=== PATIENT | female | born 1975 | race Caucasian/White ===

== ENCOUNTER 2017-06-20 09:08 | Emergency (ER) | payer MEDICAID | END 2017-06-20 10:34 | disposition home or self-care (01) | LOC: E/R 09:08 | DX: J45.901 Unspecified asthma with (acute) exacerbation (principal) | CPT/HCPCS: 99283; Z7502 ==

== ENCOUNTER 2017-07-15 06:23 | Emergency (ER) | payer MEDICAID ==
[2017-07-15] MEDS: predniSONE 20 MG TAB PO (07:05)
[2017-07-15] MEDS: IPRATROPIUM (NEB) 0.5 MG/2.5 ML AMP HHN (07:20)
[2017-07-15] MEDS: ALBUTEROL 0.083% (NEB) 2.5 MG/3 ML AMP HHN (07:20)
== END 2017-07-15 08:29 | disposition home or self-care (01) ==
LOC: FTE 06:23
DX: J06.9 Acute upper respiratory infection, unspecified (principal); J45.909 Unspecified asthma, uncomplicated
CPT/HCPCS: 71045; 94664; 99284-25

== ENCOUNTER 2017-08-13 02:47 | Emergency (ER) | payer MEDICAID ==
[2017-08-13] MEDS: DEXAMETHASONE 10 MG/ML 1 ML INJ IM (07:48)
[2017-08-13] MEDS: IPRATROPIUM (NEB) 0.5 MG/2.5 ML AMP HHN (07:56)
[2017-08-13] MEDS: ALBUTEROL 0.083% (NEB) 2.5 MG/3 ML AMP HHN (07:56)
== END 2017-08-13 09:07 | disposition home or self-care (01) ==
LOC: FTE 02:47
DX: J45.901 Unspecified asthma with (acute) exacerbation (principal)
CPT/HCPCS: 94664; 96372; 99284-25

== ENCOUNTER 2017-09-11 04:33 | Emergency (ER) | payer SELFPAY, MEDICAID | END 2017-09-11 07:25 | disposition left against medical advice (07) | LOC: FTE 04:33 | DX: Z53.21 Procedure and treatment not carried out due to patient leaving prior to being seen by health care provider (principal) ==

== ENCOUNTER 2017-09-11 21:39 | Emergency (ER) | payer MEDICAID, OTHER ==
[2017-09-12] MEDS: ALBUTEROL 0.083% (NEB) 2.5 MG/3 ML AMP NEB (01:47)
[2017-09-12] MEDS: IPRATROPIUM (NEB) 0.5 MG/2.5 ML AMP NEB (01:47)
== END 2017-09-12 04:29 | disposition home or self-care (01) ==
LOC: FTE 21:39
DX: J45.901 Unspecified asthma with (acute) exacerbation (principal); J20.9 Acute bronchitis, unspecified
CPT/HCPCS: 71045; 94664; 99284-25

== ENCOUNTER 2018-07-01 06:31 | Emergency (ER) | payer MEDICAID ==
[2018-07-01] MEDS: DEXAMETHASONE 10 MG/ML 1 ML INJ IM (07:03)
[2018-07-01] MEDS: ALBUTEROL 0.083% (NEB) 2.5 MG/3 ML AMP HHN (07:14)
[2018-07-01] MEDS: IPRATROPIUM (NEB) 0.5 MG/2.5 ML AMP HHN (07:15)
== END 2018-07-01 08:05 | disposition home or self-care (01) ==
LOC: FTE 06:31
DX: J45.901 Unspecified asthma with (acute) exacerbation (principal)
CPT/HCPCS: 94644; 96372; 99284-25

== ENCOUNTER 2018-08-22 04:44 | Emergency (ER) | payer MEDICAID ==
[2018-08-22] MEDS: IPRATROPIUM (NEB) 0.5 MG/2.5 ML AMP NEB (06:09)
[2018-08-22] MEDS: ALBUTEROL 0.083% (NEB) 2.5 MG/3 ML AMP NEB (06:10)
[2018-08-22] MEDS: METHYLPREDNISOLONE 125 MG INJ IM (06:43)
== END 2018-08-22 07:33 | disposition home or self-care (01) ==
LOC: E/R 04:44
DX: J45.21 Mild intermittent asthma with (acute) exacerbation (principal); F17.210 Nicotine dependence, cigarettes, uncomplicated
CPT/HCPCS: 94664; 96372; 99284-25